=== PATIENT | female | born 1975 | race Hispanic/Latino ===

== ENCOUNTER 2025-03-09 12:49 | Emergency (ER) | payer OTHER ==
[~2025-03-09] VITALS: Ht 157.5 cm; Wt 91.6 kg
--- NOTE | 2025-03-09 14:24 | HMCIMG ---
EXAM: CR Thoracic Spine, 2 View. CLINICAL HISTORY: pain, injury COMPARISON: None provided. FINDINGS: BONES: No acute fracture or aggressive appearing osseous lesion. DISCS / DEGENERATIVE CHANGES: The disc spaces are preserved. SOFT TISSUES: The paraspinal soft tissue lines are unremarkable. The visualized lungs are clear. MISCELLANEOUS: Visualization of the upper thoracic spine is limited on the lateral view by overlying structures. IMPRESSION: No acute thoracic spine osseous abnormality. /[place]
--- NOTE | 2025-03-09 14:27 | HMCIMG ---
EXAM: CR left Shoulder, 2 View. CLINICAL HISTORY: pain, injury COMPARISON: None provided. FINDINGS: BONES: No acute fracture or aggressive appearing osseous lesion. JOINTS: No dislocation. The joint spaces are normal. SOFT TISSUES: The soft tissues are unremarkable. IMPRESSION: No acute abnormality evident on examination of the left shoulder. No acute fracture or dislocation. /[place]
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
[2025-03-09 15:29] VITALS: BP 105/72; PULSE 88; RESP 16; TEMP 99; O2SAT 99
== END 2025-03-09 15:41 | disposition home or self-care (01) ==
LOC: EDH 12:49
DX: M25.512 Pain in left shoulder (principal); M54.6 Pain in thoracic spine; I51.9 Heart disease, unspecified; E11.22 Type 2 diabetes mellitus with diabetic chronic kidney disease; N18.30 Chronic kidney disease, stage 3 unspecified; Z95.5 Presence of coronary angioplasty implant and graft; V89.2XXA Person injured in unspecified motor-vehicle accident, traffic, initial encounter; Y93.89 Activity, other specified; Y92.410 Unspecified street and highway as the place of occurrence of the external cause; Y99.8 Other external cause status
CPT/HCPCS: 72072; 73030; 99284